=== PATIENT | female | born 1960 | race African-American/Black ===

== ENCOUNTER 2017-08-30 22:28 | Emergency (ER) | payer MEDICARE, OTHER ==
[~2017-08-30] VITALS: Ht 167.6 cm; Wt 77.0 kg
[~2017-08-30 22:28] MED LIST: PROM25SU8 PO; Z.0.NO CURRENT MEDS
[2017-08-30 23:01] VITALS: BP 125/83; PULSE 85; RESP 16; TEMP 98.6; O2SAT 99
[2017-08-30] MEDS ORDERED: ACETAMINOPHEN/HYDROcodone 325 MG/5 MG TAB PO ONE (23:45)
--- NOTE | 2017-08-31 00:03 | PD ---
HPI Chief Complaint: Pain: Acute or Chronic Time Seen by Provider: 23:27 Travel History International Travel<30 days: No Contact w/Intl Traveler<30days: No Traveled to known affect area: No History of Present Illness HPI Patient is a 57 year old female who comes in complaining of left foot pain. She says she fell about two weeks ago and was seen at a hospital in [facility] and placed in a splint and given crutches with pain medicine. She says she is unable to figure out how to use the crutches and she is out of her percocet. She denies any new injuries. She says her leg is throbbing at night. She tried Ibuprofen without relief. Severity is mild to moderate. [facility] Past Medical History Medical History: Denies Significant Hx : 7 Para: 7 Tubal Ligation: Yes Past Surgical History Surgical History: No Previous Surgery Section: Yes (X2) Other Surgery: Yes (LINDA ESCALONA) Social History Alcohol Use: No Tobacco Use: No Substance Use: No Allergies-Medications (Allergen,Severity, Reaction): Coded Allergies: penicillin G (Unverified Allergy, Severe, 02/11/17) Reported Meds & Prescriptions Reported Meds & Active Scripts Active No Active Prescriptions or Reported Medications Review of Systems General / Constitutional: No: Fever, Chills HENT: No: Headaches, Lightheadedness Cardiovascular: No: Chest Pain or Discomfort Respiratory: No: Shortness of Breath Gastrointestinal: No: Nausea, Vomiting Genitourinary: No: Dysuria Musculoskeletal: Positive: Pain Skin: No Rash, No Change in Pigmentation Neurologic: No: Weakness, Dizziness Physical Exam Narrative GENERAL: Awake and alert, in no acute distress. SKIN: Focused skin assessment warm/dry. No wounds or signs of infection. HEAD: Atraumatic. Normocephalic. EYES: Pupils equal and round. No scleral icterus. ENT: Mucous membranes pink and moist. CARDIOVASCULAR: Regular rate and rhythm. No murmur appreciated. RESPIRATORY: No accessory muscle use. Clear to auscultation. Breath sounds equal bilaterally. MUSCULOSKELETAL: No obvious deformities. No clubbing. No cyanosis. Mild swelling of the left ankle. Tender to palpation of the lateral malleolus. No calf tenderness or swelling. Pedal pulses intact. NEUROLOGICAL: Awake and alert. No obvious cranial nerve deficits. Motor grossly within normal limits. Normal speech. PSYCHIATRIC: Appropriate mood and affect; insight and judgment normal. Data Data Last Documented VS Vital Signs Date Time Temp Pulse Resp B/P (MAP) Pulse Ox O2 Delivery O2 Flow Rate FiO2 08/30/17 23:01 98.6 85 16 125/83 (97) 99 Orders Orders Ankle, Complete ([id number]) (08/30/17 ) Acetamin-Hydrocod 325-5 Mg (Ramona 5-325 (08/30/17 23:45) Splint Or Brace Apply/Monitor (08/31/17 00:05) MDM Medical Decision Making Medical Screen Exam Complete: Yes Emergency Medical Condition: Yes Medical Record Reviewed: Yes Differential Diagnosis ankle fracture vs sprain vs foot fracture Narrative Course Patient is a 57 year old female who comes in complaining of left foot pain. Exam shows swelling and tenderness to the lateral malleolus. XR shows a nondisplaced fibular fracture. Patient re-splinted. Advised to use crutches and keep her weight off the foot as it heals. Given a referral to orthopedics. Given pain medicine. Advised to return to the ED as needed for any worsening symptoms. Diagnosis Primary Impression: Left fibular fracture Qualified Codes: S82.832D - Other fracture of upper and lower end of left fibula, subsequent encounter for closed fracture with routine healing Referrals: Jagdish Moss Jr., MD call for appointment Patient Instructions: Ankle Fracture (ED), General Instructions Additional Instructions: Keep your splint on and follow up with orthopedics. Use the crutches to keep weight off of your foot. Take pain medicine as needed. Return to the ED as needed for any worsening symptoms. Scripts Hydrocodone-Acetaminophen (Ramona) 5 Mg-325 Mg Tab 1 TAB PO Q6H Y for PAIN, #12 TAB 0 Refills Prov: Zaina Ahmadi MD 08/31/17 Disposition: 01 DISCHARGE HOME Condition: Stable Zaina Ahmadi MD Aug 31, 2017 00:03
--- NOTE | 2017-08-31 00:06 | RADRPT ---
EXAM DATE/TIME: 08/30/2017 23:37 [facility] COMPARISON: No previous studies available for comparison. INDICATIONS : Left foot pain with a diagnosis of fracture at a hospital in [facility] two weeks ago. MEDICAL HISTORY : None. SURGICAL HISTORY : None. ENCOUNTER: Initial ACUITY: 2 weeks PAIN SCORE: 8/10 LOCATION: Left Foot and ankle FINDINGS: Three-view examination demonstrates mild lateral soft tissue swelling. There is some indistinctness of the lateral cortex of the diametaphyseal distal fibula and on the oblique view, there is a thin co rtical discontinuity suggesting a nondisplaced fracture with possible partial healing. No bridging c allus seen. The distal tibia is intact. Ankle mortise is symmetric and configuration. Small planta r and retrocalcaneal spurs. CONCLUSION: Findings suggest subacute one cortex fracture of the distal fibula with adjacent soft tissue thickeni ng. Aftab Lacey MD on August 31, 2017 at 0:03 Board Certified Radiologist. This report was verified electronically.
[2017-08-31] MEDS ORDERED: NORC5TAB PO (00:21)
== END 2017-08-31 00:56 | disposition home or self-care (01) ==
LOC: NEPD 22:28
DX: S82.832D Other fracture of upper and lower end of left fibula, subsequent encounter for closed fracture with routine healing (principal); Z88.0 Allergy status to penicillin; W19.XXXD Unspecified fall, subsequent encounter
CPT/HCPCS: 29515; 73610; 99283; E0113